=== PATIENT | male | born 1945 | race Caucasian/White ===

== ENCOUNTER 2020-08-03 10:54 | Emergency (ER) | payer MEDICARE, SELFPAY ==
[2020-08-03 11:04] VITALS: BP 145/67; PULSE 73; RESP 16; TEMP 37.1; O2SAT 100
--- NOTE | 2020-08-03 11:10 | ED.GENADUL_ITS ---
Discharge Plan Disposition Patient Disposition: HOME Condition: Stable Discharge Details Clinical Impression: Rash Primary Care Provider: Jessica,Local ED Provider: Leah Nolen Home Meds and New Rx's Prescriptions: New doxycycline hyclate 100 mg tablet 100 mg PO BID Qty: 41 RF: 0 No Action No Known Home Meds RF: 0 Discharge Instructions Instructions: Doxycycline (By mouth), Lyme Disease (ED), Acute Rash (ED) Additional Instructions: Please return immediately to the emergency department if you develop any new or worsening symptoms, if your condition does not improve as expected, or if you become otherwise concerned. It is extremely important that you call soon as possible to make an appointment to be seen in follow-up for this visit by your primary care doctor. Discharge Data Discharge Date/Time-TO BE ENTERED AT DEPARTURE: 08/03/20 15:26 Medical Decision Making Glynn Worley is a 34-year-old man who presented to the emergency department with several days of rash, also with fatigue, mild malaise over past few days, intermittent fever with high temp 100.5 degrees. On exam patient is very well and nontoxic-appearing. 2 x 2 centimeter area of several hemorrhagic bullae just inferior to the right axilla with centimeter surrounding erythema without tenderness or crepitus. Normal examination of the mucous membranes without lesion. Otherwise benign exam. Concern for atypical Lyme versus other tickborne disease, other. Exam/history is not consistent with Logan-Ruperto syndrome, TPN, meningitis, sepsis, encephalitis, necrotizing fasciitis, endocarditis. Plan for screening labs. EKG shows left bundle, no prior for comparison, unknown if new. I discussed patient presentation and EKG with Dr. Dave of cardiology, who stated no branch block unlikely to be related to Lyme or other acute emergent pathology with the clinical presentation, no further intervention from cardiology recommended. Labs reviewed, WBC 9.58, mildly elevated ESR at 22, CRP 9.99. patient consented to start over the area, no identifying areas involved in picture, this photo was done to Dr. Lehman of dermatology at [facility] I discussed patient presentation and lab results with Dr. De La Cruz who reviewed photo: Dr. Lehman thought bolus Lyme disease likely etiology of symptoms, also possible atypical shingles recommended varicella-zoster swab, 21 days treatment doxycycline for likely Lyme disease. I discussed recommendations with patient who was amenable. Zoster swab sent for culture. Rx for doxycycline. I had a lengthy discussion with Patient regarding return to emergency department precautions, home care, and importance of outpatient follow-up. Pt verbalizes understanding of the plan and is amenable. Patient discharged to home with clear plan for outpatient follow-up. All questions were answered. Disposition decision was made weighing the risks and benefits of hospitalization versus outpatient treatment, the risk for further decompensation, and the patient's wishes. Medical Records Medical records reviewed: Yes I reviewed the patient's medical records. Lab Data Lab results reviewed: Yes I reviewed the patient's lab results. Labs: 08/03/20 12:26 Blood Blood Culture - Final NO GROWTH 120 HOURS 08/03/20 12:14 Blood Blood Culture - Final NO GROWTH 120 HOURS Laboratory Tests Range/Units 08/03/20 08/03/20 08/03/20 12:14 12:14 12:14 WBC (4.4-10.8) 10^3/uL 9.58 RBC (4.36-5.78) 10^6/uL 4.13 L Hgb (13.5-17.5) g/dL 13.1 L Hct (40.0-50.0) % 38.9 L MCV (80-95) fL 94.2 MCH (27.0-33.0) pg 31.7 MCHC (32.0-36.0) % 33.7 RDW (11.8-14.1) % 12.7 Plt Count (130-400) 10^3/uL 157 MPV (8.0-11.0) fL 9.8 Immature Gran % 0.4 Neutrophils % 81.0 Lymphocytes % 8.7 Monocytes % 9.7 Eosinophils % 0.0 Basophils % 0.2 Nucleated RBC % % 0 Absolute Neutrophils (1.2-6.7) 10^3/uL 7.76 H Absolute Lymphocytes (1.2-3.4) 10^3/uL 0.83 L Absolute Monocytes (0.1-0.8) 10^3/uL 0.93 H Absolute Eosinophils (0.0-0.7) 10^3/uL 0.00 Absolute Basophils (0.0-0.2) 10^3/uL 0.02 ESR (1-20) mm/hr 22 H PT (9.3-11.0) sec INR (0.9-1.1) APTT (21.0-27.5) sec VBG Lactate (0.6-1.4) mmol/L 0.9 Sodium (136-145) mmol/L 136 Potassium (3.5-5.1) mmol/L 3.8 Chloride (98-107) mmol/L 102 Carbon Dioxide (21.0-32.0) mmol/L 27.3 Anion Gap (3-11) mmol/L 6.7 BUN (7-18) mg/dL 19 H Creatinine (0.70-1.30) mg/dL 0.90 Estimated GFR/1.73 m2 (mL/min/1.73m2) >= 60.00 Glucose (74-106) mg/dL 135 H Calcium (8.5-10.1) mg/dL 8.7 Total Bilirubin (0.2-1.0) mg/dL 0.4 AST (15-37) U/L 17 ALT (16-63) U/L 11 L Alkaline Phosphatase (46-116) U/L 80 Troponin I (<0.06) ng/mL C-Reactive Protein (0.0-0.3) mg/dL 9.99 H Total Protein (6.4-8.2) g/dL 6.6 Albumin (3.4-5.0) g/dL 3.1 L A.phagocytophil DNA PCR B. divergens/MO-1 PCR Babesia duncani (PCR) Babesia microti DNA PCR Borrelia (PCR) Lyme Disease Antibody E.chaffeensis DNA (PCR) E.ewingii/canis DNA PCR E. muris-like DNA (PCR) VZV Specimen Descript VZV DNA (PCR) (Negative) Range/Units 08/03/20 08/03/20 08/03/20 12:14 12:14 12:14 WBC (4.4-10.8) 10^3/uL RBC (4.36-5.78) 10^6/uL Hgb (13.5-17.5) g/dL Hct (40.0-50.0) % MCV (80-95) fL MCH (27.0-33.0) pg MCHC (32.0-36.0) % RDW (11.8-14.1) % Plt Count (130-400) 10^3/uL MPV (8.0-11.0) fL Immature Gran % Neutrophils % Lymphocytes % Monocytes % Eosinophils % Basophils % Nucleated RBC % % Absolute Neutrophils (1.2-6.7) 10^3/uL Absolute Lymphocytes (1.2-3.4) 10^3/uL Absolute Monocytes (0.1-0.8) 10^3/uL Absolute Eosinophils (0.0-0.7) 10^3/uL Absolute Basophils (0.0-0.2) 10^3/uL ESR (1-20) mm/hr PT (9.3-11.0) sec 10.5 INR (0.9-1.1) 1.0 APTT (21.0-27.5) sec 28.6 H VBG Lactate (0.6-1.4) mmol/L Sodium (136-145) mmol/L Potassium (3.5-5.1) mmol/L Chloride (98-107) mmol/L Carbon Dioxide (21.0-32.0) mmol/L Anion Gap (3-11) mmol/L BUN (7-18) mg/dL Creatinine (0.70-1.30) mg/dL Estimated GFR/1.73 m2 (mL/min/1.73m2) Glucose (74-106) mg/dL Calcium (8.5-10.1) mg/dL Total Bilirubin (0.2-1.0) mg/dL AST (15-37) U/L ALT (16-63) U/L Alkaline Phosphatase (46-116) U/L Troponin I (<0.06) ng/mL C-Reactive Protein (0.0-0.3) mg/dL Total Protein (6.4-8.2) g/dL Albumin (3.4-5.0) g/dL A.phagocytophil DNA PCR Cancelled B. divergens/MO-1 PCR Cancelled Babesia duncani (PCR) Cancelled Babesia microti DNA PCR Cancelled Borrelia (PCR) Cancelled Lyme Disease Antibody Cancelled E.chaffeensis DNA (PCR) Cancelled E.ewingii/canis DNA PCR Cancelled E. muris-like DNA (PCR) Cancelled VZV Specimen Descript VZV DNA (PCR) (Negative) Range/Units 08/03/20 08/03/20 08/03/20 12:14 14:51 14:55 WBC (4.4-10.8) 10^3/uL RBC (4.36-5.78) 10^6/uL Hgb (13.5-17.5) g/dL Hct (40.0-50.0) % MCV (80-95) fL MCH (27.0-33.0) pg MCHC (32.0-36.0) % RDW (11.8-14.1) % Plt Count (130-400) 10^3/uL MPV (8.0-11.0) fL Immature Gran % Neutrophils % Lymphocytes % Monocytes % Eosinophils % Basophils % Nucleated RBC % % Absolute Neutrophils (1.2-6.7) 10^3/uL Absolute Lymphocytes (1.2-3.4) 10^3/uL Absolute Monocytes (0.1-0.8) 10^3/uL Absolute Eosinophils (0.0-0.7) 10^3/uL Absolute Basophils (0.0-0.2) 10^3/uL ESR (1-20) mm/hr PT (9.3-11.0) sec INR (0.9-1.1) APTT (21.0-27.5) sec VBG Lactate (0.6-1.4) mmol/L Sodium (136-145) mmol/L Potassium (3.5-5.1) mmol/L Chloride (98-107) mmol/L Carbon Dioxide (21.0-32.0) mmol/L Anion Gap (3-11) mmol/L BUN (7-18) mg/dL Creatinine (0.70-1.30) mg/dL Estimated GFR/1.73 m2 (mL/min/1.73m2) Glucose (74-106) mg/dL Calcium (8.5-10.1) mg/dL Total Bilirubin (0.2-1.0) mg/dL AST (15-37) U/L ALT (16-63) U/L Alkaline Phosphatase (46-116) U/L Troponin I (<0.06) ng/mL < 0.05 Cancelled C-Reactive Protein (0.0-0.3) mg/dL Total Protein (6.4-8.2) g/dL Albumin (3.4-5.0) g/dL A.phagocytophil DNA PCR B. divergens/MO-1 PCR Babesia duncani (PCR) Babesia microti DNA PCR Borrelia (PCR) Lyme Disease Antibody E.chaffeensis DNA (PCR) E.ewingii/canis DNA PCR E. muris-like DNA (PCR) VZV Specimen Descript Rt axilla VZV DNA (PCR) (Negative) Negative ECG Data Attestation: I personally reviewed and interpreted this ECG (s) as follows: Interpretation: EKG shows sinus rhythm at 67, left bundle branch block, does not meet sgarbossa criteria, nondiagnostic EKG HPI General Mode of arrival: ambulatory . Date/Time Provider Initiated Documentation: 08/03/20 10:56 . Limitations to Documentation: no limitations . Information obtained by: patient, RN notes reviewed and old records reviewed . HPI Narrative: Glynn Worley is a 75-year-old man without history of medical problems presenting to the emergency department with rash, fevers at home. Patient reports that he spent a lot of time outdoors and is frequently exposed to tick and gets tick bite. Patient reports that 5 or 6 days ago he woke up and noticed 3 small abrasion just adjacent to his right armpit at the he had been scratching. He is unaware of any recent tick bite or insect stings that area. Patient reports that 2 days ago his noticed that he had what looked like bloody blisters to the area. Patient reports that these have somewhat increased in size since he first noticed them 2 days ago. Patient reports that over the past 2 days he has felt tired and has spent most the time in bed, has had intermittent fever with high temp of 100.5, has had generalized body aches particularly in his knees, and has had decreased appetite. Patient reports that he has felt somewhat better this morning and he in a normal amount today. He reports intermittent nausea. He denies any pain, vomiting, diarrhea, other rash, numbness, weakness, cough, shortness of breath. No history of similar rash. Related Data Home Medications Medication Instructions Recorded Confirmed Unknown [No Known Home Meds] 08/03/20 08/03/20 doxycycline hyclate 100 mg PO BID #41 tab 08/03/20 Previous Rx's Medication Instructions Recorded doxycycline hyclate 100 mg PO BID #41 tab 08/03/20 Allergies Allergy/AdvReac Type Severity Reaction Status Date / Time doxycycline AdvReac Skin Rash Unverified 08/03/20 11:09 General Stated Complaint: RashLesion BERNARDINO: 3 Review of Systems Narrative: Constitutional: denies fevers Eyes: denies eye pain ENT: denies ear pain, dental pain, sore throat Cardiovascular: denies chest pain, edema Respiratory: denies SOB, cough GI: denies abdominal pain, vomiting, diarrhea : denies flank pain MSK: denies back pain, neck pain, arthralgias, myalgias Skin: reports rash Neuro: denies headaches, numbness, weakness PFSH Social History Smoking/Tobacco Use Status: Never Smoking risk assessment performed?: Yes Alcohol Intake: current Alcohol Intake frequency: 0-2 drinks per day Alcohol type: wine Substance use type: does not use Do you feel safe at home: Yes Do you feel safe in your relationship?: Yes Exam Narrative Exam Narrative: Constitutional: well and [id number], pleasant, conversing normally HENT: head atraumatic/normocephalic/normal inspection, mucous membranes moist, normal mucous membranes, no intraoral lesion Eyes: conjunctiva normal, sclera normal, pupils 3mm b/l Neck: no stridor, normal ROM, trachea midline Chest: normal inspection Resp: normal work of breathing, LCTAB Cardio: normal rate, normal rhythm, no murmur appreciated Back: normal inspection, no rash Skin: warm, dry, normal color, no rash Neuro: alert, not altered, grossly non-focal, normal tone, normal gait Ext: no edema, moving all extremities equally, just inferior to right axilla 3 x 3 cm area multiple hemorrhagic bullae, with bullae 0.5 to 1 cm in diameter, 10 cm surrounding erythema, no tenderness to palpation in area of rash, no crepitus, no edema, no induration, no other rash noted Psych: normal mood, normal affect, normal behavior Course Vital Signs Vital signs: Vital Signs Temperature 37.1 C 08/03/20 11:04 Pulse 73 08/03/20 11:04 Respiratory Rate 16 08/03/20 11:04 Blood Pressure 145/67 H 08/03/20 11:04 Pulse Oximetry 100 08/03/20 11:04 Temperature 37.1 C 08/03/20 11:04 Temperature Source Oral 08/03/20 11:04 Pulse 73 08/03/20 11:04 Respiratory Rate 16 08/03/20 11:04 Respiratory Effort Non-Labored 08/03/20 11:08 Blood Pressure 145/67 H 08/03/20 11:04 Blood Pressure Position Sitting 08/03/20 11:04 Pulse Oximetry 100 08/03/20 11:04 Oxygen Delivery Method Room Air 08/03/20 11:04 Oxygen Flow Rate 0 08/03/20 11:04 Pain Level 2 08/03/20 11:04
--- NOTE | 2020-08-03 11:15 | RT.EKG_ITS ---
APPROVED REPORT Exam: Resting ECG Patient Location: E HR:67 bpm ECG Measurements Heart Rate 67 AXIS AL 155 P 14 QRSd 146 QRS -27 QT 432 T 266 QTc 456 Conclusion Sinus rhythm...normal P axis, V-rate 60- 99 Left bundle branch block...QRSd>120, broad/notched R ST elevation secondary to IVCD...Multiple VCG criteria
[2020-08-03 12:34] LABS: Lactate 0.9 mmol/L (0.6-1.4)
[2020-08-03 12:36] LABS: Abs Immature Grans 0.04 10^3/uL (0.0-0.06); Absolute Basophil Count 0.02 10^3/uL (0.0-0.2); Absolute Lymphocyte Count 0.83 10^3/uL (1.2-3.4); Absolute Monocyte Count 0.93 10^3/uL (0.1-0.8); Absolute Neutrophil Count 7.76 10^3/uL (1.2-6.7); Basophils % 0.2; HCT 38.9 % (40.0-50.0); HGB 13.1 g/dL (13.5-17.5); Immature Grans % 0.4; Lymphocytes % 8.7; MCH 31.7 pg (27.0-33.0); MCHC 33.7 % (32.0-36.0); MCV 94.2 fL (80-95); MPV 9.8 fL (8.0-11.0); Monocytes % 9.7; Nucleated RBC 0 %; Platelet Count 157 10^3/uL (130-400); RBC 4.13 10^6/uL (4.36-5.78); RDW 12.7 % (11.8-14.1); RDW-SD 44.1 fL; WBC 9.58 10^3/uL (4.4-10.8)
[2020-08-03 12:47] LABS: Prothrombin Time 10.5 sec (9.3-11.0)
[2020-08-03 12:49] LABS: PTT Activated 28.6 sec (21.0-27.5)
[2020-08-03 12:55] LABS: ALT 11 U/L (16-63); AST 17 U/L (15-37); Albumin 3.1 g/dL (3.4-5.0); Alkaline Phosphatase 80 U/L (46-116); Anion Gap 6.7 mmol/L (3-11); BUN 19 mg/dL (7-18); Bilirubin, Total 0.4 mg/dL (0.2-1.0); C-Reactive Protein 9.99 mg/dL (0.0-0.3); CO2 27.3 mmol/L (21.0-32.0); Calcium 8.7 mg/dL (8.5-10.1); Chloride 102 mmol/L (98-107); Glucose 135 mg/dL (74-106); Potassium 3.8 mmol/L (3.5-5.1); Sodium 136 mmol/L (136-145); Total Protein 6.6 g/dL (6.4-8.2)
[2020-08-03 12:58] LABS: Troponin I < 0.05 ng/mL (<0.06)
[2020-08-03 13:59] VITALS: BP 140/71; PULSE 70; RESP 16; TEMP 36.9; O2SAT 99
[2020-08-03 14:04] LABS: ESR 22 mm/hr (1-20)
[2020-08-03] MEDS: Doxycycline Hyclate 100 MG CAP PO (15:19)
[2020-08-04 15:00] LABS: Varicella Zoster DNA Result Negative (Negative)
[2020-08-11 14:10] LABS: Anaplasma phagocytophilum Negative (Negative); Babesia divergens/MO-1 Negative (Negative); Babesia duncani Negative (Negative); Babesia microti Negative (Negative); Ehrlichia chaffeensis Negative (Negative); Ehrlichia ewingii/canis Negative (Negative); Ehrlichia muris eauclairensis Negative (Negative); Lyme Ab w Rflx to Lyme Confirm Negative (Negative)
[2020-08-11 14:11] LABS: B. miyamotoi PCR Negative (Negative)
== END 2020-08-03 15:26 | disposition home or self-care (01) ==
PROVIDERS: Emergency Provider Student in an Organized Health Care Education/Training Program
DX: R21 Rash and other nonspecific skin eruption (principal); R50.9 Fever, unspecified; M79.10 Myalgia, unspecified site
CPT/HCPCS: 36410; 36415; 80053; 85652; 87040; 87798; 93005; 99284; 83605; 84484; 85025; 85610; 85730; 86140; 86618; 93010

== ENCOUNTER 2025-08-07 12:27 | Outpatient (REF) | payer MEDICARE, SELFPAY ==
[2025-08-07 16:03] LABS: Abs Immature Grans 0.02 10^3/uL (0.0-0.06); HCT 39.7 % (40.0-50.0); HGB 13.1 g/dL (13.5-17.5); Immature Grans % 0.3 %; MCH 30.6 pg (27.0-33.0); MCHC 33.0 % (32.0-36.0); MCV 93 fL (80-95); MPV 9.7 fL (8.0-11.0); Platelet Count 266 10^3/uL (130-400); RBC 4.28 10^6/uL (4.36-5.78); RDW 12.7 % (11.8-14.1); RDW-SD 43.5 fL; WBC 5.83 10^3/uL (4.4-10.8)
[2025-08-08 09:30] LABS: D-Dimer 2288 ng/mlFEU (<500)
== END 2025-08-07 12:28 | disposition home or self-care (01) ==
LOC: LBN 12:27
PROVIDERS: Visit Provider Nurse Practitioner Family
DX: R06.02 Shortness of breath (principal)
CPT/HCPCS: 85025; 85379

== ENCOUNTER → 2025-08-07 14:07 | Outpatient (CLI) | payer MEDICARE, SELFPAY ==
--- NOTE | 2025-08-07 | DI.RAD_ITS ---
Exam(s) XR CHEST 2V PA LATERAL EXAM: XR CHEST 2V PA LATERAL CLINICAL HISTORY: R06.02 SOB, dry cough x 5days. TECHNIQUE: 2D digital imaging was performed. COMPARISON: No exams were available for comparison FINDINGS: 2 views: Heart size is normal. The mediastinum is not widened. There is a significant moderate-large size right pleural effusion. No obvious infiltrate. There is no pleural effusion on the opposite-left side. No airspace pulmonary edema. IMPRESSION: Moderate-large size right pleural effusion. Requires close follow-up to rule out underlying cause. DATA REPOSITORY: RADIATION DOSE DELIVERED:
== END ==
PROVIDERS: Visit Provider Nurse Practitioner Family
DX: R06.02 Shortness of breath (principal); J90 Pleural effusion, not elsewhere classified
CPT/HCPCS: 71046

== ENCOUNTER 2025-08-07 17:11 | Outpatient (CLI) | payer MEDICARE, SELFPAY ==
[2025-08-07 18:13] LABS: ALT 28 U/L (10-49); AST 38 U/L (<34); Albumin 3.7 g/dL (3.4-5.0); Alkaline Phosphatase 123 U/L (46-116); Anion Gap 7.7 mmol/L (3-11); BUN 20 mg/dL (9-23); Bilirubin, Total 0.40 mg/dL (0.2-1.2); CO2 29.3 mmol/L (20.0-31.0); Calcium 8.8 mg/dL (8.3-10.6); Chloride 105 mmol/L (98-107); Glucose 172 mg/dL (74-106); Potassium 4.1 mmol/L (3.5-5.1); Sodium 142 mmol/L (136-145); Total Protein 6.3 g/dL (5.7-8.2)
== END 2025-08-07 17:12 | disposition home or self-care (01) ==
LOC: LBO 17:11
PROVIDERS: Visit Provider Nurse Practitioner Family
DX: J90 Pleural effusion, not elsewhere classified (principal)
CPT/HCPCS: 36415; 80053; 71046

== ENCOUNTER → 2025-08-08 12:22 | Outpatient (CLI) | payer MEDICARE, SELFPAY ==
--- NOTE | 2025-08-08 | DI.CT_ITS ---
Exam(s) CT CHEST PE CTA EXAM: CT CHEST PE CTA CLINICAL HISTORY: ELEVATED D DIMER,? PE,SOB. TECHNIQUE: Imaging Protocol: CT angiography of the chest was performed using pulmonary embolus protocol. Multi planar reconstructions were performed. CONTRAST MATERIAL: Intravenous: Omnipaque 350 Contrast volume: 70 cc COMPARISON: CR XR CHEST 2V PA LATERAL from 08/07/2025 FINDINGS: CHEST: PULMONARY ARTERIES: There are no intraluminal filling defects to suggest acute pulmonary emboli. LUNGS: There is a moderate-large right pleural effusion and collapse of the right lower lobe. There is mild infiltrate noted in the medial aspect of the right middle lobe adjacent to the heart border. Right lower lobe is mostly collapsed and difficult to assess. No infiltrates nor masses evident in the left lung. Trace amount of left pleural fluid MEDIASTINUM: No obvious hilar nor anterior mediastinal adenopathy. No paratracheal adenopathy. Visualized thyroid unremarkable. CARDIAC: Heart size is upper normal. There is no pericardial effusion.Caliber of the thoracic aorta is within normal limits. There is no significant shift of the interventricular septum. PARTIALLY VISUALIZED UPPERMOST ABDOMEN: No ascites. Possible retroperitoneal adenopathy, difficult to assess on this type study. Spleen size appears normal. OSSEOUS: No significant osseous lesions.No fractures.. IMPRESSION: 1. No evidence of acute pulmonary emboli. No evidence of pulmonary infarction. 2. The main finding here is a large right pleural effusion with collapse of most of the right lower lobe. 3. Lowermost images reveal possible retroperitoneal/para-aortic adenopathy. RADIATION DOSE DELIVERED: 78.39mGy.cm Total DLP DATA REPOSITORY: All CT scans at this facility are submitted to the National Radiology Data Registry (NRDR) Dose Index Registry (DIR) with the [employer] ([employer]). RADIATION OPTIMIZATION: All CT scans at this facility use at least one of these dose optimization techniques: automated exposure control; mA and/or kV adjustment per patient size (includes targeted exams where dose is matched to clinical indication); or iterative reconstruction.
[2025-08-08] MEDS: Normal Saline - Diluent 50 ML VIAL IJ (14:16)
[2025-08-08] MEDS: Normal Saline Flush 10 ML SYR IVP (14:17)
[2025-08-08] MEDS: Omnipaque 350 MG/ML 100 ML BTL IJ (15:07)
== END ==
LOC: DI 12:22
PROVIDERS: Visit Provider Nurse Practitioner Family
DX: R79.89 Other specified abnormal findings of blood chemistry (principal); J90 Pleural effusion, not elsewhere classified; J98.19 Other pulmonary collapse
CPT/HCPCS: 71275; J3490